=== PATIENT | male | born 1950 | race Hispanic/Latino ===

== ENCOUNTER 2016-09-06 22:06 | Observation (INO) | payer BC ==
[2016-09-06 22:07] VITALS: BMI 25.2
[2016-09-06 22:15] VITALS: O2SAT 97
--- NOTE | 2016-09-06 22:28 | ED PDOC ---
Arrival/HPI - General Chief Complaint: Chest Pain Time Seen by Provider: 09/06/16 22:12 Historian: Patient - History of Present Illness Narrative History of Present Illness (Text): 09/06/16 22:28 Agustin Andrew is a 66 year old male, whose past medical history includes hypertension, GA, and CAD with 1 stent, who presents to the Emergency department accompanied by complaining of chest pain. Patient states he woke up this morning with burning mid-sternal chest pain. Patient states he originally attributed symptoms to acid reflux and took Zantac at home but denies any relief. Patient states he took Aspirin at home. Patient denies any fever, chills, shortness of breath, nausea, vomiting, diarrhea, urinary symptoms , back pain, neck pain, headache, dizziness, or any other complaints. Time/Duration: Other (today) Symptom Onset: Gradual Symptom Course: Unchanged Quality: Burning Activities at Onset: Light Context: Home Past Medical History - Provider Review Nursing Documentation Reviewed: Yes - Infectious Disease Hx of Infectious Diseases: C.diff - Tetanus Immunization Tetanus Immunization: Up to Date - Cardiac Hx GA: Yes Hx Pacemaker: No - Neurological Hx Paralysis: No - Hematological/Oncological Hx Blood Transfusions: No - Musculoskeletal/Rheumatological Hx Musculoskeletal Disorders: No - Psychiatric Hx Emotional Abuse: No Hx Physical Abuse: No Hx Substance Use: No - Surgical History Hx Cardiac Catheterization: Yes Hx Coronary Stent: Yes Hx Inguinal Hernia Repair: Yes (bilateral) - Anesthesia Hx Anesthesia Reactions: No Hx Malignant Hyperthermia: No - Suicidal Assessment Feels Threatened In Home Enviroment: No Family/Social History - Physician Review Nursing Documentation Reviewed: Yes Family/Social History: No Known Family HX Smoking Status: Never Smoked Hx Alcohol Use: Yes (OCCASIONAL WINE) Hx Substance Use: No Hx Substance Use Treatment: No Allergies/Home Meds Allergies/Adverse Reactions: Allergies No Known Allergies Allergy (Verified 11/08/11 16:49) Home Medications: Home Meds Medication Instructions Recorded Confirmed Aspirin [Aspir 81] 81 mg PO DAILY 11/08/11 09/06/16 Metoprolol Succinate [Toprol XL] 25 mg PO DAILY 11/08/11 09/06/16 Simvastatin [Zocor] 20 mg PO DAILY 11/08/11 09/06/16 Review of Systems - Physician Review All systems were reviewed & negative as marked: Yes - Review of Systems Constitutional: Normal. absent: Fevers Eyes: Normal ENT: Normal Respiratory: Normal. absent: SOB, Cough Cardiovascular: Chest Pain Gastrointestinal: Normal. absent: Abdominal Pain, Diarrhea, Nausea, Vomiting Genitourinary Male: Normal. absent: Dysuria, Frequency, Hematuria, Urinary Output Changes Musculoskeletal: Normal. absent: Back Pain, Neck Pain Skin: Normal. absent: Rash Neurological: Normal. absent: Headache, Dizziness Endocrine: Normal Hemo/Lymphatic: Normal Psychiatric: Normal Physical Exam Vital Signs Reviewed: Yes Vital Signs Temp Pulse Resp BP Pulse Ox 09/06/16 22:35 98.2 F 95 H 18 149/83 97 09/06/16 22:12 98.2 F 95 H 18 149/83 97 Temperature: Afebrile Blood Pressure: Normal Pulse: Regular Respiratory Rate: Normal Appearance: Positive for: Well-Appearing, Non-Toxic, Comfortable Pain Distress: None Mental Status: Positive for: Alert and Oriented X 3 - Systems Exam Head: Present: Atraumatic, Normocephalic Pupils: Present: PERRL Extroacular Muscles: Present: EOMI Conjunctiva: Present: Normal Mouth: Present: Moist Mucous Membranes Neck: Present: Normal Range of Motion Respiratory/Chest: Present: Clear to Auscultation, Good Air Exchange. No: Respiratory Distress, Accessory Muscle Use Cardiovascular: Present: Regular Rate and Rhythm, Normal S1, S2. No: Murmurs Abdomen: Present: Normal Bowel Sounds. No: Tenderness, Distention, Peritoneal Signs Back: Present: Normal Inspection Upper Extremity: Present: Normal Inspection. No: Cyanosis, Edema Lower Extremity: Present: Normal Inspection. No: Edema Neurological: Present: GCS=15, CN II-XII Intact, Speech Normal Skin: Present: Warm, Dry, Normal Color. No: Rashes Psychiatric: Present: Alert, Oriented x 3, Normal Insight, Normal Concentration Medical Decision Making ED Course and Treatment: 09/06/16 22:28 Impression: 66 year old male complaining of chest pain. Plan: -- EKG -- Chest X-ray -- Labs, cardiac enzymes, lipase -- Aspirin -- Nitroglycerin -- Reassess and disposition Progress Notes: Reviewed EKG, NSR at 88 bpm. Left atrial enlargement. Non-specific T wave changes. 09/06/16 23:[address] Conti, covering for Dr. Nice, who is aware and agrees with plan. Pt will go to Telemetry observation for chest pain under Dr. Nice. Requests consult with Dr. Ang. 09/07/16 00:20 Reviewed radiology, Chest X-ray shows no acute processes. - Lab Interpretations Lab Results: 09/06/16 22:25 09/06/16 22:25 Lab Results 09/06/16 22:25: WBC 6.8, RBC 4.80, Hgb 13.6 L, Hct 40.8 L, MCV 85.0, MCH 28.3, MCHC 33.3, RDW 13.0, Plt Count 141, MPV 9.2 09/06/16 22:25: Sodium 137, Potassium 3.7, Chloride 102, Carbon Dioxide 25, Anion Gap 14, BUN 18, Creatinine 0.9, Est GFR ( Amer) > 60, Est GFR (Non- Af Amer) > 60, Random Glucose 116 H, Calcium 9.0, Total Bilirubin 0.8, AST 30, ALT 34, Alkaline Phosphatase 51, Lactate Dehydrogenase 388, Total Creatine Kinase 209, Troponin I 0.02, Total Protein 7.1, Albumin 4.2, Globulin 2.9, Albumin/Globulin Ratio 1.4, Lipase 129 09/06/16 22:25: PT 10.6, INR 0.98, APTT 28.9 I have reviewed the lab results: Yes - RAD Interpretation Radiology Orders: 09/06/16 22:29 CHEST PORTABLE [RAD] Stat - EKG Interpretation Interpreted by ED Physician: Yes Type: 12 lead EKG - Medication Orders Current Medication Orders: Discontinued Medications Acetaminophen (Tylenol 325mg Tab) 650 mg PO Q6H PRN PRN Reason: Fever >100.4 F Aspirin (Aspirin) 325 mg PO ONCE STA Stop: 09/06/16 22:31 Last Admin: 09/06/16 22:44 Dose: 325 mg Aspirin (Ecotrin) 81 mg PO DAILY [facility] Last Admin: 09/07/16 09:53 Dose: 81 mg Atorvastatin Calcium (Lipitor) 10 mg PO HS FARHTA Metoprolol Succinate (Toprol Xl) 25 mg PO DAILY [facility] Last Admin: 09/07/16 09:53 Dose: 25 mg Nitroglycerin (Nitro-Bid 2% Oint) 1 ea TOP ONCE STA Stop: 09/06/16 22:31 Last Admin: 09/06/16 22:44 Dose: 1 ea Pantoprazole Sodium (Protonix Ec Tab) 40 mg PO ONCE ONE Stop: 09/08/16 07:01 Pantoprazole Sodium (Protonix Ec Tab) 40 mg PO ONCE ONE Stop: 09/07/16 08:01 Last Admin: 09/07/16 08:07 Dose: 40 mg Pantoprazole Sodium (Protonix Ec Tab) 40 mg PO 0630 FARHAT - Scribe Statement The provider has reviewed the documentation as recorded by the Florencioibmurphy Gordon All medical record entries made by the Alejandra were at my direction and personally dictated by me. I have reviewed the chart and agree that the record accurately reflects my personal performance of the history, physical exam, medical decision making, and the department course for this patient. I have also personally directed, reviewed, and agree with the discharge instructions and disposition. Disposition/Present on Arrival - Present on Arrival Any Indicators Present on Arrival: No History of DVT/PE: No History of Uncontrolled Diabetes: No Urinary Catheter: No History of Decub. Ulcer: No History Surgical Site Infection Following: None - Disposition Have Diagnosis and Disposition been Completed?: Yes Diagnosis: Chest pain Disposition: HOSPITALIZED Disposition Time: 00:16 Patient Plan: Observation Condition: STABLE
[2016-09-06] MEDS ORDERED: Nitroglycerin 2% Ointment Foilpak UD TOP STA (22:30)
[2016-09-06 22:45] LABS: HEMATOCRIT 40.8 % (42.0-52.0); MEAN CORPUSCULAR HEMOGLOBIN 28.3 pg (25.0-35.0); MEAN CORPUSCULAR HGB CONC 33.3 g/dl (31.0-37.0); MEAN PLATELET VOLUME 9.2 fl (7.0-11.0); WHITE BLOOD COUNT 6.8 10^3/ul (4.5-11.0)
[2016-09-06 22:52] LABS: ALB/GLOB RATIO 1.4 (1.1-1.8); ALKALINE PHOSPHATASE 51 U/L (38-133); ALT/SGPT 34 U/L (7-56); AST/SGOT 30 U/L (15-59); BILIRUBIN,TOTAL 0.8 mg/dL (0.2-1.3); BLOOD UREA NITROGEN 18 mg/dL (7-21); CARBON DIOXIDE 25 mmol/L (21-33); CHLORIDE 102 mmol/L (98-107); GFR AFRICAN-AMERICAN > 60; GLUCOSE,RANDOM 116 mg/dL (70-110); LIPASE 129 U/L (23-300); POTASSIUM 3.7 mmol/L (3.6-5.0); SODIUM 137 mmol/L (132-148); TOTAL PROTEIN 7.1 g/dL (5.8-8.3)
[2016-09-06 22:55] LABS: INR 0.98 (0.93-1.08); PARTIAL THROMBOPLASTIN TIME 28.9 Seconds (23.7-30.8)
[2016-09-06 23:04] LABS: TROPONIN I 0.02 ng/mL
[2016-09-07] MEDS ORDERED: Pantoprazole 40 mg EC Tab PO ONE (08:00)
[2016-09-07 08:26] LABS: TROPONIN I 0.02 ng/mL
--- NOTE | 2016-09-07 09:28 | RAD ---
HISTORY: fever COMPARISON: Images from chest x-ray performed 11/08/11 TECHNIQUE: Chest, one view. FINDINGS: May whaley limited by habitus and hypoinflation LUNGS: No focal consolidation. Please note that chest x-ray has limited sensitivity for the detection of pulmonary masses. PLEURA: No significant pleural effusion identified. No definite pneumothorax . CARDIOVASCULAR: The cardiomediastinal silhouette appears within normal limits of size. OSSEOUS STRUCTURES: Degenerative changes. VISUALIZED UPPER ABDOMEN: Unremarkable. OTHER FINDINGS: None. IMPRESSION: No focal consolidation, significant pleural effusion, or definite pneumothorax identified.
[2016-09-07] MEDS ORDERED: Metoprolol Succinate 25 mg XL Tab PO SCH (10:00)
[2016-09-07 12:39] VITALS: BP 104/61; PULSE 72; RESP 21; TEMP 98.6
--- NOTE | 2016-09-07 15:52 | HP ---
HISTORY OF PRESENT ILLNESS: The patient is a 66-year-old who came to Emergency Room because of chest pain and pressure. He states recently he was seen by Dr. Brantley, who switched his usual Nexium me dication to Zantac. Since then, he has not been feeling well. He has been having intermittent chest discomfort and mediastinal discomfort feeling of flushing. Denies any fever or chills. No hi story of nausea or vomiting. Did have midsternal chest discomfort and burning. He did take aspirin at home. Does not have any fever, chills, shortness of breath, dizziness. PAST MEDICAL HISTORY: Significant for hypertension and coronary artery disease, status post angiopla sty almost a year ago. ALLERGIES: Not allergic to any medication. PAST SURGICAL HISTORY: Significant for inguinal hernia repair. MEDICATIONS AT HOME: He is on simvastatin 20 mg daily, metoprolol 25 daily, aspirin 81 daily and rec ently has been taking Zantac. REVIEW OF SYSTEMS: Significant for retrosternal burning and epigastric burning. Otherwise, he state s he feels better now. PHYSICAL EXAMINATION: GENERAL: He is awake and alert, communicative. VITAL SIGNS: He is afebrile, pulse 79, respirations 20, and blood pressure 110/70. LUNGS: Bilateral fair airflow, no rhonchi or crackle. HEART: S1, S2 audible. ABDOMEN: Soft, nontender, no rebound, no guarding. NEUROLOGIC: The patient is awake and alert, communicative. LABORATORY DATA: WBC 6.8, hemoglobin 13, hematocrit 40.8, platelet of 141. PT 10.6, INR 0.98, PTT 2 8.9. Chemistry: Sodium 137, potassium 3.7, chloride 102, CO2 25, BUN 18, creatinine 0.9, blood suga r 118. Three sets of cardiac enzymes are negative. EKG is unremarkable. x-ray chest is unrem arkable. ASSESSMENT: 1. Chest pain secondary to peptic ulcer disease because of lack of proton pump inhibitors. 2. Hypertension. 3. Coronary artery disease, status post angioplasty. PLAN: The patient was seen by Dr. Ang he, has been given prescription of Nexium 20 twice a day. He will be discharged today and he will follow with Dr. Ang as outpatient and follow up with Cr Brantley as outpatient. Daksha Conti MD cc: [id number] TT: 09/07/2016 15:52:05 ln
--- NOTE | 2016-09-07 17:52 | CON ---
DATE: 09/07/2016 REQUESTING PHYSICIAN: Dr. Conti. REASON FOR CONSULTATION: Chest pain. HISTORY OF PRESENT ILLNESS: This is a 66-year-old man well known to me with a history of coronary ar kaleigh disease, status post prior PCI of his left circumflex artery, who developed chest discomfort yes terday and presented to the Emergency Room for evaluation. He states he has been under a great deal of stress as he has been busy preparing for a family alliance party at home. He developed some epigastric dis comfort, which he described as a burning sensation. He felt somewhat nauseated and his symptoms waxe d and waned throughout the day. He became concerned and presents to the Emergency Room for evaluatio n. Initial electrocardiogram and blood work has been unremarkable. PAST MEDICAL HISTORY: Is notable for the problems mentioned above. He does have a history of hypert ension. He has had a remote myocardial infarction for which he underwent PCI. He was scheduled for a stress test later this year. MEDICATIONS: At home included aspirin, metoprolol 25 mg daily and simvastatin 20 mg daily. ALLERGIES: He has no reported allergies. SOCIAL HISTORY: He is , lives with his . He works as a furniture finisher. He does not smoke. He drinks occasional wine. FAMILY HISTORY: Both parents are but there is no family history of premature heart disease. REVIEW OF SYSTEMS: A 10-point review of systems is otherwise unremarkable. PHYSICAL EXAMINATION: GENERAL: He is an anxious appearing middle-aged man. VITAL SIGNS: Blood pressure is 120/60 with a pulse of 76, respirations are 16. He is in sinus rhyth m at rest. He is afebrile. HEENT: Normocephalic, atraumatic. Pupils equal to light and accommodation. NECK: Supple. No JVD noted. CHEST: Clear to auscultation and percussion. HEART: PMI . No pathologic murmur or gallops noted. ABDOMEN: Soft, nontender, normoactive bowel sounds. EXTREMITIES: No clubbing, cyanosis or edema. SKIN: Warm and dry. PSYCHIATRIC: Normal mood and affect. NEUROLOGIC: Alert and oriented x 3. No gross motor or sensory deficits appreciated. DIAGNOSTIC DATA: Electrocardiogram reveals sinus rhythm with nonspecific ST-T abnormalities. Chest x-ray reveals normal cardiac silhouette with clear lung burnett. White count 6.8, hemoglobin and renetta tocrit 13.6 and 40.8 with a platelet count of 141,000. PT, PTT are normal. Potassium 3.7, BUN and c reatinine 18 and 0.9. Two sets of cardiac enzymes are negative. IMPRESSION: Epigastric and chest discomfort appears most consistent with gastroesophageal reflux sym ptoms. Doubt cardiac ischemia. RECOMMENDATIONS: A third set of cardiac enzymes are pending. If this is negative, discharge home wo uld be appropriate and outpatient follow up will be arranged. Continued risk factor control was advi sed. Resumption of proton pump inhibitor therapy was recommended for now as well. Thank you for this consultation. Issa Ang MD cc: [id number] TT: 09/07/2016 17:52:06 Confirmation # [id number] Dictation # [id number] tino
--- NOTE | 2016-09-07 22:05 | CARD ---
APPROVED REPORT EKG Measurement Heart [id number] <Conclusion> Normal sinus rhythm Possible Left atrial enlargement Nonspecific T wave abnormality Abnormal ECG
[2016-09-08] MEDS ORDERED: Pantoprazole 40 mg EC Tab PO SCH (06:30)
[2016-09-08] MEDS ORDERED: Pantoprazole 40 mg EC Tab PO ONE (07:00)
== END 2016-09-07 13:21 | disposition home or self-care (01) ==
LOC: ED 22:06 → ERH 09-07 01:00 → 2RNO 09-07 02:50
PROVIDERS: ADMIT Internal Medicine Nephrology; ATTEND Internal Medicine Nephrology
DX: K21.9 Gastro-esophageal reflux disease without esophagitis (principal); I25.2 Old myocardial infarction; I25.10 Atherosclerotic heart disease of native coronary artery without angina pectoris; I10 Essential (primary) hypertension; K27.9 Peptic ulcer, site unspecified, unspecified as acute or chronic, without hemorrhage or perforation; Z79.82 Long term (current) use of aspirin; Z95.5 Presence of coronary angioplasty implant and graft
CPT/HCPCS: 36415; 71010; 80053; 82550; 83615; 83690; 84484; 85027; 85610; 85730; 93005; 99285; G0378

== ENCOUNTER 2017-07-28 09:55 | Day surgery (SDC) | payer BC ==
[2017-07-20 13:08] VITALS: BMI 27.3
[2017-07-28] MEDS ORDERED: Propofol 10 mg/ml Inj (20 ML) ONE (11:45)
[2017-07-28] MEDS ORDERED: Midazolam 2 MG/2 ML VIAL ONE (11:45)
[2017-07-28] MEDS ORDERED: Lidocaine 1% Inj (20ml) ONE (11:45)
[2017-07-28] MEDS ORDERED: Sodium Chloride 0.9% 1,000 ML IV SCH (12:30)
[2017-07-28 13:58] VITALS: BP 116/58; PULSE 62; RESP 16; TEMP 97.5; O2SAT 99
== END 2017-07-28 14:25 | disposition home or self-care (01) ==
LOC: ENDO 09:55
PROVIDERS: ATTEND Internal Medicine Gastroenterology
DX: K63.5 Polyp of colon (principal); K57.30 Diverticulosis of large intestine without perforation or abscess without bleeding; K29.50 Unspecified chronic gastritis without bleeding; K44.9 Diaphragmatic hernia without obstruction or gangrene; K64.8 Other hemorrhoids
CPT/HCPCS: 43235; 45378; J2250; J2704; J7040 ×2